=== PATIENT | female | born 1955 | race Caucasian/White ===

== ENCOUNTER 2017-10-15 12:01 | Inpatient (IN) | payer MEDICARE, BC ==
[~2017-10-15] VITALS: Ht 152.4 cm; Wt 154.0 kg
[2017-10-15 13:11] LABS: BASOPHILS % (AUTO) 0 % (0-1); EOSINOPHILS % (AUTO) 0 % (0-6); HEMATOCRIT 29.6 % (35.0-45.0); HEMOGLOBIN 9.9 g/dl (12.0-16.0); LYMPHOCYTES # (AUTO) 0.3 X10'3 (1.1-4.8); LYMPHOCYTES % (AUTO) 1.8 % (21-51); MEAN CORPUSCULAR HEMOGLOBIN 27.3 PG (27.0-31.0); MEAN CORPUSCULAR HGB CONC 33.3 % (33.0-36.5); MEAN CORPUSCULAR VOLUME 81.9 FL (78-98); MEAN PLATELET VOLUME 9.3 FL (7.4-10.4); MONOCYTES # (AUTO) 0.3 X10'3 (0-0.9); NEUTROPHILS # (AUTO) 17.2 X10'3 (1.8-7.7); NEUTROPHILS % (AUTO) 96.2 % (42-75); PLATELET COUNT 177 X10'3 (140-440); RED BLOOD COUNT 3.61 X10'6 (4.20-5.60); RED CELL DISTRIBUTION WIDTH 20.5 % (11.5-14.5); WHITE BLOOD COUNT 17.9 X10'3 (4.5-11.0)
[2017-10-15 13:24] LABS: INR 1.2 INR; PARTIAL THROMBOPLASTIN TIME 40 SECONDS (22-32); PROTHROMBIN TIME 12.5 SECONDS (9.0-12.0)
[2017-10-15 13:25] LABS: ALANINE AMINOTRANSFERASE 28 U/L (12-78); ALBUMIN 2.1 G/DL (3.4-5.0); ALBUMIN/GLOBULIN RATIO 0.4 (1.1-1.5); ALKALINE PHOSPHATASE 286 IU/L (46-116); ANION GAP 11 (8-16); ASPARTATE AMINO TRANSFERASE 33 U/L (10-37); BILIRUBIN,TOTAL 0.7 MG/DL (0.1-1.0); BLOOD UREA NITROGEN 79 MG/DL (7-18); BUN/CREATININE RATIO 30.6 (6.6-38.0); CALCIUM 9.7 MG/DL (8.5-10.1); CHLORIDE 101 MMOL/L (99-107); CREATININE 2.58 MG/DL (0.40-0.90); GLUCOSE 116 MG/DL (70-104); MAGNESIUM 1.8 MG/DL (1.5-2.4); POTASSIUM 4.1 MMOL/L (3.5-5.1); SODIUM 138 MMOL/L (135-145); TOTAL CARBON DIOXIDE 26.3 MMOL/L (24-32); TOTAL PROTEIN 7.7 G/DL (6.4-8.2); eGFR 19 ML/MIN
[2017-10-15 13:33] LABS: CLARITY,URINE TURBID (Clear); GLUCOSE, URINE NEGATIVE (Neg); KETONES,URINE TRACE mg/dl (Neg); LEUKOCYTE ESTERASE ,URINE MODERATE (Neg); NITRITES, URINE NEGATIVE (Neg); OCCULT BLOOD,URINE LARGE (Neg); PROTEIN,URINE 100 mg/dl (Neg)
[2017-10-15 13:35] LABS: COLOR,URINE DARK YELLOW (Yellow); UA COLLECTION TYPE STRAIGHT CATH; URINE HCG NEGATIVE (NEG)
[2017-10-15 14:06] LABS: ANISOCYTOSIS 2+; HYPOCHROMASIA 1+; PLATELET ESTIMATE NORMAL; POLYCHROMASIA 1+; ROULEAUX 1+; TARGET CELLS FEW; TOTAL CELLS COUNTED 100; TOXIC GRANULATION 2+; TOXIC VACUOLATION FEW
[2017-10-15 14:10] LABS: WBC,URINE TNTC /HPF (0-4)
[2017-10-15] MEDS ORDERED: vancomycin/NS 1 GM ADD-VANTAGE 250 ML IV ONE (14:10)
[2017-10-15 14:18] LABS: BACTERIA,URINE 3+ /HPF (Neg); COARSE GRANULAR CAST 0-3 /LPF (NEGATIVE); RBC,URINE 20-50 /HPF (0-2); RENAL CELLS, URINE FEW /HPF; SQUAMOUS EPITHELIAL CELL,UR FEW /LPF (FEW); URIC ACID CRYSTALS FEW /HPF (NEGATIVE); WBC CLUMPS,URINE MANY /HPF (NEGATIVE)
[2017-10-15] MEDS ORDERED: magnesium Cl slow-release 64mg tablet PO PRN (14:45)
[2017-10-15] MEDS ORDERED: acetaminophen 325mg tablet PO PRN (14:45)
[2017-10-15] MEDS ORDERED: potassium Cl 40MEQ/NS 500ml 500 ML IV PRN ×2 (14:45)
[2017-10-15] MEDS ORDERED: magnesium 4gm in 100ml NS 100 ML IV PRN (14:45)
[2017-10-15] MEDS ORDERED: magnesium 2GM in 50ml NS 50 ML IV PRN (14:45)
[2017-10-15] MEDS ORDERED: mag hydrox/Alum hydrox/simeth 30ml oral suspension PO PRN (14:45)
[2017-10-15] MEDS ORDERED: ondansetron/PF 4mg/2ml inj IV PRN (14:45)
[2017-10-15] MEDS ORDERED: HYDROcodone/acetaminophen 5mg/325mg tablet PO PRN (14:45)
[2017-10-15] MEDS ORDERED: magnesium hydroxide 30ml (MOM) UD suspension PO PRN (14:45)
[2017-10-15] MEDS ORDERED: potassium Cl 20 mEq SR tablet PO PRN ×2 (14:45)
[2017-10-15] MEDS ORDERED: morphine 2 MG/ML inj. syringe IV PRN ×2 (14:45)
[2017-10-15] MEDS ORDERED: HYDROcodone/acetaminophen 10/325mg tab PO PRN (14:45)
[2017-10-15] MEDS ORDERED: MESSAGE TO PHARMACY PO ONE (15:10)
[2017-10-15] MEDS ORDERED: dextrose 50%-water 50ml dispensing syringe IV PRN ×2 (15:10)
[2017-10-15] MEDS ORDERED: glucagon, human recombinant 1mg kit SUBCUT PRN (15:10)
[2017-10-15] MEDS ORDERED: dextrose ORAL solution 15 GM/59 ML bottle PO PRN ×2 (15:10)
[2017-10-15] MEDS ORDERED: KEN0.1O TP (15:11)
[2017-10-15 15:13] LABS: HEMOGLOBIN A1C 6.5 % (4.5-6.2)
[2017-10-15] MEDS ORDERED: ACET-2119 PO (15:13)
[2017-10-15] MEDS ORDERED: ATOR10TA87 PO (15:15)
[2017-10-15] MEDS ORDERED: MULT-38 PO (15:17)
[2017-10-15] MEDS ORDERED: ASCO125T PO (15:18)
[2017-10-15] MEDS ORDERED: ASPI-611 PO (15:19)
[2017-10-15] MEDS ORDERED: POTA10CA44 PO (15:20)
[2017-10-15] MEDS ORDERED: RIVA15TA PO (15:21)
[2017-10-15] MEDS ORDERED: CARV3.122 PO (15:23)
[2017-10-15] MEDS ORDERED: FURO-149 PO (15:24)
[2017-10-15] MEDS ORDERED: BUDE0.5A11 IH (15:25)
[2017-10-15] MEDS ORDERED: INSU100C10 SQ (15:28)
[2017-10-15] MEDS ORDERED: NA P133E4 RC (15:29)
[2017-10-15] MEDS ORDERED: GLUC1KIT IM (15:29)
[2017-10-15] MEDS ORDERED: MAGN400O6 PO (15:30)
[2017-10-15] MEDS ORDERED: BISA10SU60 RC (15:31)
[2017-10-15] MEDS: normal saline 1000ml 1,000 ML IV SCH (15:43)
[2017-10-15] MEDS ORDERED: cefTRIAXone 1g/NS 100ml IVPB 100 ML IV ONE (17:45)
[2017-10-15 18:00] VITALS: BP 100/53
[2017-10-15] MEDS: budesonide 0.5mg/2ml UD nebule IH SCH (20:00)
[2017-10-15] MEDS: atorvastatin 10mg tablet PO SCH (20:12)
[2017-10-15] MEDS: docusate sod 100mg capsule PO SCH (20:12)
[2017-10-15] MEDS: carVEDilol 3.125mg tablet PO SCH (20:12)
[2017-10-15] MEDS: heparin, porcine 5000 units/ml vial SQ SCH (20:14)
[2017-10-15] MEDS: acetaminophen 325mg tablet PO PRN (20:19)
[2017-10-15] MEDS: insulin glargine (Lantus) pen - multi-dose SQ SCH (21:00)
[2017-10-15] MEDS ORDERED: temazepam 15mg capsule PO PRN (21:00)
[2017-10-16] VITALS: BP 112/51
[2017-10-16 03:40] LABS: BASOPHILS % (AUTO) 0 % (0-1); EOSINOPHILS % (AUTO) 0.1 % (0-6); HEMATOCRIT 31.9 % (35.0-45.0); HEMOGLOBIN 10.5 g/dl (12.0-16.0); LYMPHOCYTES # (AUTO) 0.5 X10'3 (1.1-4.8); LYMPHOCYTES % (AUTO) 3.5 % (21-51); MEAN CORPUSCULAR HEMOGLOBIN 27.1 PG (27.0-31.0); MEAN CORPUSCULAR VOLUME 82.3 FL (78-98); MEAN PLATELET VOLUME 9.6 FL (7.4-10.4); MONOCYTES # (AUTO) 0.9 X10'3 (0-0.9); MONOCYTES % (AUTO) 6.3 % (2-12); NEUTROPHILS # (AUTO) 12.4 X10'3 (1.8-7.7); NEUTROPHILS % (AUTO) 90.1 % (42-75); PLATELET COUNT 152 X10'3 (140-440); RED BLOOD COUNT 3.88 X10'6 (4.20-5.60); RED CELL DISTRIBUTION WIDTH 20.6 % (11.5-14.5); WHITE BLOOD COUNT 13.8 X10'3 (4.5-11.0)
[2017-10-16 04:02] LABS: ALBUMIN 2.1 G/DL (3.4-5.0); ANION GAP 11 (8-16); BILIRUBIN,TOTAL 0.9 MG/DL (0.1-1.0); BLOOD UREA NITROGEN 83 MG/DL (7-18); BUN/CREATININE RATIO 34.6 (6.6-38.0); CALCIUM 10.3 MG/DL (8.5-10.1); CHLORIDE 99 MMOL/L (99-107); GLUCOSE 140 MG/DL (70-104); POTASSIUM 4.5 MMOL/L (3.5-5.1); SODIUM 135 MMOL/L (135-145); TOTAL CARBON DIOXIDE 24.8 MMOL/L (24-32); TOTAL PROTEIN 8.2 G/DL (6.4-8.2); eGFR 21 ML/MIN
[2017-10-16 04:03] LABS: ALANINE AMINOTRANSFERASE 21 U/L (12-78); ALBUMIN/GLOBULIN RATIO 0.3 (1.1-1.5); ALKALINE PHOSPHATASE 314 IU/L (46-116); ASPARTATE AMINO TRANSFERASE 37 U/L (10-37)
[2017-10-16] MEDS: K and/or MAG REPLACEMENT MC SCH (06:21)
[2017-10-16 07:00] VITALS: BP 117/60
[2017-10-16] MEDS: budesonide 0.5mg/2ml UD nebule IH SCH ×2 (07:04→19:49)
[2017-10-16] MEDS ORDERED: non-formulary drug (Aspirin (Aspir 81) 1 TAB) PO SCH (08:00)
[2017-10-16] MEDS ORDERED: cefTRIAXone 1g/NS 100ml IVPB 100 ML IV SCH (08:00)
[2017-10-16] MEDS: rivaroxaban 15mg tablet PO SCH (08:09)
[2017-10-16] MEDS: furosemide 40mg tablet PO SCH (08:09)
[2017-10-16] MEDS: docusate sod 100mg capsule PO SCH ×2 (08:09→19:30)
[2017-10-16] MEDS: carVEDilol 3.125mg tablet PO SCH ×2 (08:09→19:30)
[2017-10-16] MEDS: heparin, porcine 5000 units/ml vial SQ SCH ×2 (08:09→19:31)
[2017-10-16] MEDS: aspirin 81mg tablet.DR PO SCH (08:09)
[2017-10-16] MEDS: acetaminophen 325mg tablet PO PRN ×3 (08:09→20:50)
[2017-10-16 12:46] VITALS: BP 110/56
[2017-10-16] MEDS ORDERED: cefepime 1GM/NS ADD-VANTAGE 100 ML IV ONE (16:15)
[2017-10-16] MEDS: nystatin 15 GM powder TP SCH ×2 (16:49→20:54)
[2017-10-16] MEDS: lactobacillus rhamnosus 10,000 MMU CELLS/CAPSULE PO SCH (16:49)
[2017-10-16] MEDS: cefepime inj. 0.5 GM in normal saline 100ml IV soln 100 ML IV SCH (17:00)
[2017-10-16 18:00] VITALS: BP 113/58
[2017-10-16] MEDS: insulin Lispro (HumaLOG) vial - multi-dose SQ SCH (19:26)
[2017-10-16] MEDS: atorvastatin 10mg tablet PO SCH (20:51)
[2017-10-16] MEDS: insulin glargine (Lantus) pen - multi-dose SQ SCH (21:00)
[2017-10-16 23:00] VITALS: BP 117/65
[2017-10-17] MEDS: acetaminophen 325mg tablet PO PRN ×2 (03:08→13:51)
[2017-10-17 05:53] LABS: BASOPHILS % (AUTO) 0.3 % (0-1); EOSINOPHILS # (AUTO) 0.4 X10'3 (0-0.9); EOSINOPHILS % (AUTO) 3.2 % (0-6); HEMOGLOBIN 9.4 g/dl (12.0-16.0); LYMPHOCYTES # (AUTO) 1.2 X10'3 (1.1-4.8); LYMPHOCYTES % (AUTO) 9.2 % (21-51); MEAN CORPUSCULAR HEMOGLOBIN 27.5 PG (27.0-31.0); MEAN CORPUSCULAR HGB CONC 33.7 % (33.0-36.5); MEAN CORPUSCULAR VOLUME 81.8 FL (78-98); MEAN PLATELET VOLUME 9.4 FL (7.4-10.4); MONOCYTES # (AUTO) 1.2 X10'3 (0-0.9); MONOCYTES % (AUTO) 9.1 % (2-12); NEUTROPHILS % (AUTO) 78.2 % (42-75); PLATELET COUNT 167 X10'3 (140-440); RED BLOOD COUNT 3.42 X10'6 (4.20-5.60); RED CELL DISTRIBUTION WIDTH 20.6 % (11.5-14.5); WHITE BLOOD COUNT 12.8 X10'3 (4.5-11.0)
[2017-10-17 06:24] LABS: ALANINE AMINOTRANSFERASE 30 U/L (12-78); ALBUMIN/GLOBULIN RATIO 0.4 (1.1-1.5); ALKALINE PHOSPHATASE 319 IU/L (46-116); ANION GAP 11 (8-16); ASPARTATE AMINO TRANSFERASE 52 U/L (10-37); BILIRUBIN,TOTAL 0.6 MG/DL (0.1-1.0); BLOOD UREA NITROGEN 94 MG/DL (7-18); BUN/CREATININE RATIO 38.7 (6.6-38.0); CALCIUM 9.7 MG/DL (8.5-10.1); CHLORIDE 99 MMOL/L (99-107); CREATININE 2.43 MG/DL (0.40-0.90); GLUCOSE 189 MG/DL (70-104); MAGNESIUM 2.1 MG/DL (1.5-2.4); POTASSIUM 4.4 MMOL/L (3.5-5.1); SODIUM 135 MMOL/L (135-145); TOTAL CARBON DIOXIDE 25.4 MMOL/L (24-32); TOTAL PROTEIN 7.7 G/DL (6.4-8.2); eGFR 20 ML/MIN
[2017-10-17 07:00] VITALS: BP 114/55
[2017-10-17] MEDS: budesonide 0.5mg/2ml UD nebule IH SCH ×2 (07:03→20:04)
[2017-10-17] MEDS: K and/or MAG REPLACEMENT MC SCH (08:00)
[2017-10-17] MEDS: docusate sod 100mg capsule PO SCH ×2 (08:31→20:00)
[2017-10-17] MEDS: furosemide 40mg tablet PO SCH (08:31)
[2017-10-17] MEDS: rivaroxaban 15mg tablet PO SCH (08:31)
[2017-10-17] MEDS: lactobacillus rhamnosus 10,000 MMU CELLS/CAPSULE PO SCH ×2 (08:31→16:57)
[2017-10-17] MEDS: aspirin 81mg tablet.DR PO SCH (08:31)
[2017-10-17] MEDS: carVEDilol 3.125mg tablet PO SCH ×2 (08:31→20:06)
[2017-10-17] MEDS: heparin, porcine 5000 units/ml vial SQ SCH ×2 (08:32→20:13)
[2017-10-17] MEDS: nystatin 15 GM powder TP SCH ×3 (08:32→21:29)
[2017-10-17] MEDS: insulin Lispro (HumaLOG) vial - multi-dose SQ SCH ×3 (08:41→20:12)
[2017-10-17 12:00] VITALS: BP 116/64
[2017-10-17] MEDS: normal saline 1000ml 1,000 ML IV SCH (16:57)
[2017-10-17] MEDS: cefepime inj. 0.5 GM in normal saline 100ml IV soln 100 ML IV SCH (17:18)
[2017-10-17 20:00] VITALS: BP 117/79
[2017-10-17] MEDS: atorvastatin 10mg tablet PO SCH (21:29)
[2017-10-17] MEDS: insulin glargine (Lantus) pen - multi-dose SQ SCH (21:35)
[2017-10-18 00:03] VITALS: BP 129/74
[2017-10-18] MEDS: acetaminophen 325mg tablet PO PRN (05:44)
[2017-10-18 05:48] LABS: BASOPHILS % (AUTO) 0.1 % (0-1); EOSINOPHILS # (AUTO) 0.4 X10'3 (0-0.9); EOSINOPHILS % (AUTO) 3.5 % (0-6); HEMATOCRIT 29.1 % (35.0-45.0); HEMOGLOBIN 9.6 g/dl (12.0-16.0); LYMPHOCYTES # (AUTO) 1.5 X10'3 (1.1-4.8); LYMPHOCYTES % (AUTO) 13.6 % (21-51); MEAN CORPUSCULAR HGB CONC 32.9 % (33.0-36.5); MEAN CORPUSCULAR VOLUME 82.1 FL (78-98); MEAN PLATELET VOLUME 10.1 FL (7.4-10.4); MONOCYTES # (AUTO) 0.9 X10'3 (0-0.9); MONOCYTES % (AUTO) 8.4 % (2-12); NEUTROPHILS # (AUTO) 8.1 X10'3 (1.8-7.7); NEUTROPHILS % (AUTO) 74.4 % (42-75); PLATELET COUNT 194 X10'3 (140-440); RED BLOOD COUNT 3.54 X10'6 (4.20-5.60); RED CELL DISTRIBUTION WIDTH 20.5 % (11.5-14.5); WHITE BLOOD COUNT 10.9 X10'3 (4.5-11.0)
[2017-10-18 06:28] LABS: ALANINE AMINOTRANSFERASE 44 U/L (12-78); ALBUMIN 2.3 G/DL (3.4-5.0); ALBUMIN/GLOBULIN RATIO 0.4 (1.1-1.5); ALKALINE PHOSPHATASE 394 IU/L (46-116); ANION GAP 9 (8-16); ASPARTATE AMINO TRANSFERASE 72 U/L (10-37); BILIRUBIN,TOTAL 0.5 MG/DL (0.1-1.0); BLOOD UREA NITROGEN 89 MG/DL (7-18); BUN/CREATININE RATIO 39.9 (6.6-38.0); CALCIUM 9.7 MG/DL (8.5-10.1); CHLORIDE 100 MMOL/L (99-107); CREATININE 2.23 MG/DL (0.40-0.90); GLUCOSE 199 MG/DL (70-104); MAGNESIUM 2.3 MG/DL (1.5-2.4); POTASSIUM 4.4 MMOL/L (3.5-5.1); SODIUM 137 MMOL/L (135-145); TOTAL CARBON DIOXIDE 28.4 MMOL/L (24-32); TOTAL PROTEIN 8.1 G/DL (6.4-8.2); eGFR 22 ML/MIN
[2017-10-18 07:00] VITALS: BP 116/64
[2017-10-18] MEDS: budesonide 0.5mg/2ml UD nebule IH SCH (07:32)
[2017-10-18] MEDS: nystatin 15 GM powder TP SCH ×2 (08:00→13:09)
[2017-10-18] MEDS: K and/or MAG REPLACEMENT MC SCH (08:00)
[2017-10-18] MEDS ORDERED: silver sulfadiazine cream 400gm jar TP SCH (08:00)
[2017-10-18] MEDS: docusate sod 100mg capsule PO SCH (08:00)
[2017-10-18] MEDS ORDERED: mineral oil/petrolatum, white cream 113gm jar TP SCH (08:00)
[2017-10-18] MEDS: lactobacillus rhamnosus 10,000 MMU CELLS/CAPSULE PO SCH (08:20)
[2017-10-18] MEDS: heparin, porcine 5000 units/ml vial SQ SCH (08:21)
[2017-10-18] MEDS: carVEDilol 3.125mg tablet PO SCH (08:21)
[2017-10-18] MEDS: furosemide 40mg tablet PO SCH (08:21)
[2017-10-18] MEDS: rivaroxaban 15mg tablet PO SCH (08:21)
[2017-10-18] MEDS: aspirin 81mg tablet.DR PO SCH (08:21)
[2017-10-18] MEDS: insulin Lispro (HumaLOG) vial - multi-dose SQ SCH ×2 (09:43→13:22)
[2017-10-18] MEDS ORDERED: CLIN-5 PO (09:46)
[2017-10-18 11:00] VITALS: BP 116/64
[2017-10-19] MEDS ORDERED: VANCOMYCIN LEVEL IV NR (05:30)
== END 2017-10-18 16:45 | disposition home or self-care (01) | DRG 603 ==
LOC: ER 12:02 → ED HOLD 14:43 → SUR 3N 17:28
PROVIDERS: ADMIT Internal Medicine; ATTEND Internal Medicine
DX: L03.115 Cellulitis of right lower limb (principal); J84.9 Interstitial pulmonary disease, unspecified; E11.21 Type 2 diabetes mellitus with diabetic nephropathy; E66.01 Morbid (severe) obesity due to excess calories; I48.2 Chronic atrial fibrillation; N18.4 Chronic kidney disease, stage 4 (severe); I13.0 Hypertensive heart and chronic kidney disease with heart failure and stage 1 through stage 4 chronic kidney disease, or unspecified chronic kidney disease; I50.9 Heart failure, unspecified; G47.419 Narcolepsy without cataplexy; N39.0 Urinary tract infection, site not specified; Z68.44 Body mass index [BMI] 60.0-69.9, adult; B96.1 Klebsiella pneumoniae [K. pneumoniae] as the cause of diseases classified elsewhere; K59.00 Constipation, unspecified; L89.90 Pressure ulcer of unspecified site, unspecified stage; D63.8 Anemia in other chronic diseases classified elsewhere; E11.22 Type 2 diabetes mellitus with diabetic chronic kidney disease; E78.5 Hyperlipidemia, unspecified; F40.240 Claustrophobia; G47.00 Insomnia, unspecified; G47.33 Obstructive sleep apnea (adult) (pediatric); G89.4 Chronic pain syndrome; J44.9 Chronic obstructive pulmonary disease, unspecified; R32 Unspecified urinary incontinence; Z88.6 Allergy status to analgesic agent; Z88.8 Allergy status to other drugs, medicaments and biological substances; Z79.899 Other long term (current) drug therapy; Z79.01 Long term (current) use of anticoagulants; Z79.4 Long term (current) use of insulin; Z79.82 Long term (current) use of aspirin; Z86.14 Personal history of Methicillin resistant Staphylococcus aureus infection; Z87.891 Personal history of nicotine dependence
CPT/HCPCS: 36415; 71045; 80053; 81001; 81025; 82948; 83036; 83605; 83735; 84145; 85025; 85610; 85730; 87040; 87070; 87077; 87088; 87186; 93005; 93970; 94640; 94760; 96365; 97110; 97116; 97162; 97530; 99285; A6212; A6213; A6223; A6446; A6449; J0692; J0696; J1644; J1815; J2405; J3370; J7030; J7626